=== PATIENT | male | born 1990 | race Hispanic/Latino ===

== ENCOUNTER 2018-07-04 21:02 | Emergency (ER) | payer OTHER ==
[2018-07-04] MEDS ORDERED: DiphenhydrAMINE 50 mg/ml Inj IVP STA (21:19)
[2018-07-04] MEDS ORDERED: DiphenhydrAMINE 50 mg/ml Inj ONE (21:28)
--- NOTE | 2018-07-04 22:07 | ED PDOC ---
HPI: Allergic Reaction Time Seen by Provider: 07/04/18 21:14 Chief Complaint (Nursing): Allergic Reaction Chief Complaint (Provider): Allergic Reaction History Per: Patient History/Exam Limitations: no limitations Current Symptoms Are (Timing): Still Present Associated Symptoms: Skin Rash, Itching Home/EMS Treatment: Benadryl Additional Complaint(s): Violeta Hanna is a 27 year old male with a history of tree nut allergy, who presents to the emergency department complaining of itchiness, nasal congestion and rash. Patient states he was eating dinner around 1830 today and was eating food with truffle oil in it. Between 1900 and 0, patient started to develop symptoms. He states he took x3 doses of benadryl at home and further denies having any difficulty breathing through the mouth. PMD: Non H provider Past Medical History Reviewed: Historical Data, Nursing Documentation, Vital Signs Vital Signs: Last Vital Signs Temp 97.3 F L 07/04/18 21:09 Pulse 90 07/04/18 21:09 Resp 16 07/04/18 21:09 BP 125/76 07/04/18 21:09 Pulse Ox 97 07/04/18 21:09 - Medical History PMH: No Chronic Diseases - Surgical History Surgical History: No Surg Hx - Family History Family History: States: Unknown Family Hx - Home Medications Home Medications: Ambulatory Orders Medication Instructions Recorded Epinephrine [Epipen] 0.3 mg IJ PRN PRN #2 auto.injct 07/05/18 predniSONE [predniSONE Tab] 60 mg PO DAILY #9 tab 07/05/18 - Allergies Allergies/Adverse Reactions: Allergies Allergy/AdvReac Type Severity Reaction Status Date / Time tree nut Allergy ANAPHYLAXIS Verified 07/04/18 21:12 Review of Systems ROS Statement: Except As Marked, All Systems Reviewed And Found Negative ENT: Positive for: Nose Congestion Respiratory: Negative for: Other (difficulty breathing) Skin: Positive for: Rash (itchy) Physical Exam - Reviewed Nursing Documentation Reviewed: Yes Vital Signs Reviewed: Yes - Physical Exam Appears: Positive for: Well, No Acute Distress Head Exam: Positive for: ATRAUMATIC, NORMOCEPHALIC Skin: Positive for: Rash (urticarial rash to the chest, abdomen and back; blotchy and scattered ) Eye Exam: Positive for: Normal appearance, EOMI, PERRL ENT: Positive for: Normal ENT Inspection, Other (normal uvula; (-) soft tissue swelling) Neck: Positive for: Normal, Painless ROM, Supple Cardiovascular/Chest: Positive for: Regular Rate, Rhythm. Negative for: Murmur Respiratory: Positive for: Normal Breath Sounds. Negative for: Respiratory Distress (able to speak full sentences) Gastrointestinal/Abdominal: Positive for: Normal Exam, Soft. Negative for: Tenderness Back: Positive for: Normal Inspection. Negative for: L CVA Tenderness, R CVA Tenderness, Vertebral Tenderness Extremity: Positive for: Normal ROM. Negative for: Pedal Edema, Deformity Neurologic/Psych: Positive for: Alert, Oriented - ECG O2 Sat by Pulse Oximetry: 97 (RA) Pulse Ox Interpretation: Normal Disposition - Clinical Impression Clinical Impression: Allergic reaction - Disposition Referrals: [facility] [place] [Outside] Disposition: Routine/Home Disposition Time: 04:54 Condition: GOOD Prescriptions: Epinephrine [Epipen] 0.3 mg IJ PRN PRN #2 auto.injct PRN Reason: Anaphylaxis predniSONE [predniSONE Tab] 60 mg PO DAILY #9 tab Instructions: Marco (DC), Allergy Skin Testing Forms: [facility] (Romansh) Medical Decision Making Medical Decision Making: Time: 2118 Impression: 27 year old male presenting with allergic reaction without anaphylaxis, will treat symptomatically and observe in ER. --Benadryl 25 mg IVP --Pepcid 20 mg IVP --Solu-medrol 125 mg IVP 2230 --Significantly improved, rash dissipated, no respiratory involvement, well appearing 0000 --Patient is very well appearing, rash almost completely cleared up --Will discharge with steroid and epi pen --Stable for discharge, good condition Scribe Attestation: Documented by Godwin Perez, acting as a scribe for Isidro Reeder MD. Provider Scribe Attestation: All medical record entries made by the Scribe were at my direction and personally dictated by me. I have reviewed the chart and agree that the record accurately reflects my personal performance of the history, physical exam, me dical decision making, and the department course for this patient. I have also personally directed, reviewed, and agree with the discharge instructions and disposition.
[2018-07-04 22:44] VITALS: BP 122/70; RESP 18
[2018-07-05 00:30] VITALS: PULSE 78; TEMP 97.7
[2018-07-05 04:54] VITALS: O2SAT 97
== END 2018-07-05 00:28 | disposition home or self-care (01) ==
LOC: H.ER 21:02
DX: T78.40XA Allergy, unspecified, initial encounter (principal)
CPT/HCPCS: 96374; 96375; 99283; J1200; J2930